=== PATIENT | male | born 1975 | race Caucasian/White ===

== ENCOUNTER 2017-06-17 23:11 | Emergency (ER) | payer MEDICAID ==
[2017-06-18 02:00] VITALS: BP 130/76
== END 2017-06-18 02:00 | disposition home or self-care (01) ==
LOC: ED 23:11
DX: S01.511A Laceration without foreign body of lip, initial encounter (principal); W01.198A Fall on same level from slipping, tripping and stumbling with subsequent striking against other object, initial encounter; Y93.89 Activity, other specified; Y99.8 Other external cause status; Y92.89 Other specified places as the place of occurrence of the external cause